=== PATIENT | male | born 1975 | race African-American/Black ===

== ENCOUNTER 2016-12-19 23:30 | Emergency (ER) | payer OTHER ==
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
[~2016-12-19 23:30] MED LIST: CIPRO PO; EXFORGE 10-1601 TAB PO; FLOMAX0.4 MG PO; KETOPROFEN PO; PROPRANOLOL PO; TYLOX 5/500 CAP1 CAP PO; ULTRAM PO; ZOFRAN ODT4 MG/UDTAB
[2016-12-19] MEDS ORDERED: NORVASC10 MG PO (23:35)
== END 2016-12-20 00:48 | disposition home or self-care (01) ==
LOC: SED 23:30
DX: S39.012A Strain of muscle, fascia and tendon of lower back, initial encounter (principal); F17.210 Nicotine dependence, cigarettes, uncomplicated; Z79.899 Other long term (current) drug therapy; V49.40XA Driver injured in collision with unspecified motor vehicles in traffic accident, initial encounter; Y92.488 Other paved roadways as the place of occurrence of the external cause
CPT/HCPCS: 71020; 72100; 72170; 96372; 99284; J1885